=== PATIENT | female | born 1955 | race Caucasian/White ===

== ENCOUNTER 2020-11-30 03:06 | Outpatient (CLI) | payer MEDICARE, SELFPAY ==
[2020-11-30 09:30] LABS: ALT 22 U/L (14-59); AST 11 U/L (15-37); Alkaline Phosphatase 99 U/L (46-116); Anion Gap 6.7 mmol/L (3-11); BUN 15 mg/dL (7-18); Bilirubin, Total 0.6 mg/dL (0.2-1.0); CO2 33.3 mmol/L (21.0-32.0); CREATININE 0.6 mg/dL (0.55-1.02); Calcium 9.1 mg/dL (8.5-10.1); Chloride 102 mmol/L (98-107); Glucose 78 mg/dL (74-106); Potassium 4.3 mmol/L (3.5-5.1); Sodium 142 mmol/L (136-145); Total Protein 7.4 g/dL (6.4-8.2)
== END 2020-11-30 03:07 | disposition home or self-care (01) ==
LOC: LBO 03:06
DX: G43.009 Migraine without aura, not intractable, without status migrainosus (principal); Z00.00 Encounter for general adult medical examination without abnormal findings
CPT/HCPCS: 36415; 80053

== ENCOUNTER 2022-11-21 01:45 | Outpatient (CLI) | payer MEDICARE, SELFPAY ==
[2022-11-21 08:32] LABS: ALT 18 U/L (14-59); AST 17 U/L (15-37); Albumin 4.2 g/dL (3.4-5.0); Alkaline Phosphatase 83 U/L (46-116); Anion Gap 11.9 mmol/L (3-11); BUN 12 mg/dL (7-18); Bilirubin, Total 0.6 mg/dL (0.2-1.0); CO2 29.1 mmol/L (21.0-32.0); CREATININE 0.7 mg/dL (0.55-1.02); Calculated LDL 119 mg/dL (<100); Chloride 100 mmol/L (98-107); Cholesterol 220 mg/dL (<200); Estimated GFR 93.56 (mL/min/1.73m2); Glucose 96 mg/dL (74-106); HDL Cholesterol 94 mg/dL (40-60); Sodium 141 mmol/L (136-145); Triglyceride 37 mg/dL (<150)
== END 2022-11-21 01:46 | disposition home or self-care (01) ==
PROVIDERS: PCP Nurse Practitioner Family
DX: R10.32 Left lower quadrant pain (principal); E78.5 Hyperlipidemia, unspecified
CPT/HCPCS: 36415; 80053; 80061

== ENCOUNTER → 2024-04-26 13:52 | Outpatient (BNVA) | payer MEDICARE, SELFPAY | PROVIDERS: PCP Nurse Practitioner Family; Referring Provider Nurse Practitioner Family; Visit Provider Surgery | DX: L72.3 Sebaceous cyst (principal) | CPT/HCPCS: 10060; 99203 ==

== ENCOUNTER → 2024-04-29 07:59 | Outpatient (BNVA) | payer MEDICARE, SELFPAY | PROVIDERS: PCP Nurse Practitioner Family; Referring Provider Nurse Practitioner Family; Visit Provider Physical Therapy Assistant | DX: L72.3 Sebaceous cyst (principal) ==

== ENCOUNTER → 2024-05-03 09:45 | Outpatient (BNVA) | payer MEDICARE, SELFPAY | PROVIDERS: PCP Nurse Practitioner Family; Referring Provider Nurse Practitioner Family; Visit Provider Surgery | DX: L72.3 Sebaceous cyst (principal) ==

== ENCOUNTER 2024-06-21 07:57 | Outpatient (REF) | payer MEDICARE, SELFPAY ==
--- NOTE | 2024-06-21 08:50 | SKI_PTH ---
PATIENT: Cristal Poe LOC: N U#:[id number] AGE/SX: 69/F ROOM: RE06/21/[address]: Fabian Pham MD : [id number] BED: DIS: 06/21/2024 SPEC #: [id number] RECD: 06/21/24 12:58 STATUS: BARBIE REQ #: [id number] CHANTAL: 06/21/24 08:[address]: Fabian Pham DEPT: Surgical Specimen RECD BY: Bernie Bonilla ENTERED: 06/21/24 12:58 SP TYPE: DERIK FLOYD DR: Rubin Dawn DNP Tissues: 1 - SKIN BIOPSY(SHAVE/PUNCH) Procedures: SKIN LEVEL 4 Comments: [id number]
== END 2024-06-21 07:58 | disposition home or self-care (01) ==
LOC: LBN 07:57
PROVIDERS: PCP Nurse Practitioner Family; Visit Provider Surgery
DX: L82.1 Other seborrheic keratosis (principal)
CPT/HCPCS: 88305

== ENCOUNTER → 2024-06-21 07:57 | Outpatient (BNVA) | payer MEDICARE, SELFPAY | PROVIDERS: PCP Nurse Practitioner Family; Referring Provider Nurse Practitioner Family; Visit Provider Surgery | DX: L82.1 Other seborrheic keratosis (principal); L72.11 Pilar cyst | CPT/HCPCS: 11422; 11440; 11442 ==

== ENCOUNTER 2025-01-03 16:28 | Outpatient (REF) | payer MEDICARE, SELFPAY ==
[2025-01-03 20:57] LABS: HCT 39.4 % (36.0-46.0); HGB 13.2 g/dL (11.2-15.7); MCH 31.4 pg (27.0-33.0); MCHC 33.5 % (32.0-36.0); MCV 94 fL (80-95); MPV 10.8 fL (8.0-11.0); Platelet Count 285 10^3/uL (130-400); RBC 4.21 10^6/uL (3.93-5.22); RDW 11.4 % (11.7-14.6); RDW-SD 39.1 fL; WBC 3.33 10^3/uL (4.4-10.8)
[2025-01-03 21:20] LABS: ALT 21 U/L (14-59); AST 16 U/L (15-37); Albumin 4.2 g/dL (3.4-5.0); Alkaline Phosphatase 109 U/L (46-116); Anion Gap 5.7 mmol/L (3-11); BUN 10 mg/dL (7-18); Bilirubin, Total 0.8 mg/dL (0.2-1.0); CO2 30.3 mmol/L (21.0-32.0); CREATININE 0.8 mg/dL (0.55-1.02); Calcium 9.2 mg/dL (8.5-10.1); Chloride 103 mmol/L (98-107); Estimated GFR 78.72 (mL/min/1.73m2); Glucose 90 mg/dL (74-106); Potassium 4.9 mmol/L (3.5-5.1); Sodium 139 mmol/L (136-145); TSH (W/Ref FT4) 1.71 uIU/mL (0.36-3.74); Total Protein 7.3 g/dL (6.4-8.2)
== END 2025-01-03 16:29 | disposition home or self-care (01) ==
LOC: LBN 16:28
PROVIDERS: PCP Nurse Practitioner Family; Visit Provider Nurse Practitioner Family
DX: R53.83 Other fatigue (principal)
CPT/HCPCS: 80053; 85027; 84443

== ENCOUNTER → 2025-06-13 00:29 | Outpatient (CLI) | payer MEDICARE, SELFPAY ==
--- NOTE | 2025-06-13 13:50 | DI.RAD_ITS ---
Exam(s) XR FOOT LT COMPLETE EXAM: XR FOOT LT COMPLETE CLINICAL HISTORY: Left foot pain,M79.672. TECHNIQUE: 2D digital imaging was performed of the left foot. Three images were obtained. AP, oblique and lateral views were obtained. COMPARISON: CR XR FOOT RT COMPLETE from 06/13/2025 FINDINGS: BONES: No acute fracture is present. No bony destructive lesion is seen. There is an enthesophyte at the posterior calcaneus. JOINTS: No dislocation present. There are mild degenerative changes seen at the 1st MTP joint characterized by asymmetric joint space narrowing and osteophytes. Mild degenerative changes are seen in the interphalangeal joints of the foot. The joint spaces are otherwise well maintained. SOFT TISSUE: Normal. 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 DATA REPOSITORY: RADIATION DOSE DELIVERED:
--- NOTE | 2025-06-13 13:50 | DI.RAD_ITS ---
Exam(s) XR FOOT RT COMPLETE EXAM: XR FOOT RT COMPLETE CLINICAL HISTORY: Right foot pain,M79.671. TECHNIQUE: 2D digital imaging was performed of the right foot. Three images were obtained. AP, oblique and lateral views were obtained. COMPARISON: No exams were available for comparison FINDINGS: BONES: No acute fracture is present. No bony destructive lesion is seen. JOINTS: No dislocation present. There is a hallux valgus deformity. There are degenerative changes seen at the 1st MTP joint characterized by asymmetric joint space narrowing and osteophytes. There is a moderate size osteophyte on the dorsal aspect of the head of the 1st metatarsal. The joint spaces are otherwise well maintained. SOFT TISSUE: Normal. 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 DATA REPOSITORY: RADIATION DOSE DELIVERED:
== END ==
LOC: DI 00:29
PROVIDERS: PCP Nurse Practitioner Family; Visit Provider Podiatrist
DX: M20.21 Hallux rigidus, right foot (principal); G57.61 Lesion of plantar nerve, right lower limb; M67.01 Short Achilles tendon (acquired), right ankle; M21.611 Bunion of right foot; M21.612 Bunion of left foot; M79.672 Pain in left foot
CPT/HCPCS: 29580; 99213; 29850; 73630